=== PATIENT | male | born 2000 | race Caucasian/White ===

== ENCOUNTER 2025-06-12 21:42 | Emergency (ER) | payer BC, SELFPAY ==
[2025-06-12 21:46] VITALS: BP 87/48; PULSE 78; TEMP 36.7; O2SAT 97; BMI 48.7
--- NOTE | 2025-06-12 22:02 | ED_ITS ---
HPI HPI - Back Pain/Injury General Chief Complaint: Back Pain/Injury Stated Complaint: BACK SPASMS Time Seen by Provider: 06/12/25 21:51 Source: patient Mode of arrival: walk-in History of Present Illness HPI Narrative: working in his yard 4 days ago. Next day seen at urgent care for back pain. Treated with prednisone and flexeril. [place] better yesterday and went to work last PM. Now has pain again right lower back into his leg. no pain at the buttocks. No bowel or bladder problems. Pain increased lying supine. No weakness of his extremities Related Data Allergies Allergy/AdvReac Type Severity Reaction Status Date / Time No Known Drug Allergies Allergy Verified 06/12/25 21:54 Opioid HPI Opioid Management Most Recent Opioid Data: 2 Last Pain Scale 1 Today, 00:04 Last ED Pain Assessment Today, 00:04 Review of Systems 2 ROS0 Status of ROS 10 or more systems reviewed and unremark able except as noted in history and below PFSH PFSH Social History Little interest or pleasure in doing things: not at all Feeling down, depressed, or hopeless: not at all Exam Constitutional Vital Signs, click to edit/add: Last Vital Signs Temp 98.1 F 06/12/25 21:46 Pulse 78 06/12/25 21:46 Resp 20 06/12/25 21:46 BP 131/88 06/12/25 22:45 Pulse Ox 97 06/12/25 21:46 O2 Del Method Room Air 06/12/25 21:46 Common normals: oriented x3, healthy appearing and well nourished General appearance: in distress HENNV Common normals: normocephalic and head/scalp atraumatic Eye Common normals: EOMs intact bilaterally and conjunctivae normal Respiratory Common normals: normal respiratory effort, no retractions, no use of accessory muscles and clear to auscultation bilaterally Cardio Common normals: regular rate, regular rhythm, S1 normal heart sound and S2 normal heart sound GI Common normals: Normal to inspection, nondistended, normoactive bowel sounds present, soft to palpation and non-tender Back & Pelvis Back image (male): 2 1. tender. reproduces symptoms Extremity Common normals: normal to inspection and full ROM Neuro Common normals: oriented x3, CN's II-XII intact bilaterally, moves all extremities and no focal motor deficits Psych Appearance: grossly normal Course Vital Signs Vital signs: Vital Signs Temperature 98.1 F 06/12/25 21:46 Pulse Rate 78 06/12/25 21:46 Respiratory Rate 20 06/12/25 21:46 Blood Pressure 87/48 L 06/12/25 21:46 Pulse Oximetry 97 06/12/25 21:46 Oxygen Delivery Method Room Air 06/12/25 21:46 Temperature 98.1 F 06/12/25 21:46 Pulse Rate 78 06/12/25 21:46 Respiratory Rate 20 06/12/25 21:46 Blood Pressure 131/88 06/12/25 22:45 Pulse Oximetry 97 06/12/25 21:46 Oxygen Delivery Method Room Air 06/12/25 21:46 MDM - Back Pain/Injury MDM Narrative Medical decision making narrative: presents with recurrence of acute muscular spasm pain right para lumbar region. No neuro deficits. CBC with mildly elevated WBC. CMP WNL. patient medicated for muscle spasm and is now resting comfortably. Discharged with a prescription of baclofen and prednisone and advised to take next couple of days off of work and follow up with his doctor for recheck Lab Data Labs: Lab Results 06/12/25 Range/Units 22:50 WBC 12.8 H (4.0-11.0) 10^3/uL RBC 5.34 (4.70-6.10) 10^6/uL Hgb 16.1 (14.0-18.0) g/dL Hct 47.6 (42.0-54.0) % MCV 89.1 (80.0-94.0) fL MCH 30.1 (25.9-34.0) pg MCHC 33.8 (29.9-35.2) g/dL RDW 13.2 (11.0-15.0) % Plt Count 290 (150-450) 10^3/uL MPV 11.4 (9.5-13.5) fL Neut % (Auto) 78.6 H (43.0-75.0) % Lymph % (Auto) 12.1 L (20.5-60.0) % [place] % (Auto) 7.4 (1.7-12.0) % Eos % (Auto) 1.2 (0.9-7.0) % Baso % (Auto) 0.3 (0.2-2.0) % Neut # (Auto) 10.0 H (1.4-6.5) 10^3/uL Lymph # (Auto) 1.5 (1.2-3.8) 10^3/uL [place] # (Auto) 1.0 H (0.3-0.8) 10^3/uL Eos # (Auto) 0.2 (0.0-0.7) 10^3/uL Baso # (Auto) 0.0 (0.0-0.1) 10^3/uL Abs Immat Gran (auto) 0.05 H (0.00-0.03) 10^3/uL Imm/Tot Granulo (auto) 0.4 (0.0-0.5) % Sodium 141 (136-145) mmol/L Potassium 4.5 (3.5-5.1) mmol/L Chloride 105 (98-107) mmol/L Carbon Dioxide 28.6 (21.0-32.0) mmol/L Anion Gap 11.9 BUN 16.0 (7.0-18.0) mg/dL Creatinine 1.05 (0.70-1.30) mg/dL Est GFR ( Amer) >60 (>=60 mL/min/1.73m^2) Est GFR (Non-Af Amer) >60 (>=60 mL/min/1.73m^2) BUN/Creatinine Ratio 15.2 Glucose 114 H (74-106) mg/dL Calcium 9.3 (8.5-10.1) mg/dL Total Bilirubin 0.2 (0.2-1.0) mg/dL AST 13 L (15-37) U/L ALT 34 (16-63) U/L Alkaline Phosphatase 68 (46-116) U/L Total Protein 8.2 (6.4-8.2) g/dL Albumin 4.0 (3.4-5.0) g/dL Globulin 4.2 g/dL Albumin/Globulin Ratio 1.0 Discharge Plan Discharge Chief Complaint: Back Pain/Injury Clinical Impression: Strain of lumbar region Patient Disposition: Home, Self-Care Print Language: Divehi Instructions: Muscle Strain (ED), Low Back Strain (ED) Additional Instructions: follow up with Dr Franco next couple of days Referrals: Physician,Non-Staff, MD [Primary Care Provider] - 1 week
[2025-06-12 22:45] VITALS: BP 131/88
[2025-06-12 23:02] LABS: Hematocrit 47.6 % (42.0-54.0); Hemoglobin 16.1 g/dL (14.0-18.0); Immature Granulocytes Abs Auto 0.05 10^3/uL (0.00-0.03); Immature Granulocytes Pct Auto 0.4 % (0.0-0.5); Lymphocytes Absolute Auto 1.5 10^3/uL (1.2-3.8); Mean Corpuscular HGB Conc 33.8 g/dL (29.9-35.2); Mean Corpuscular Hemoglobin 30.1 pg (25.9-34.0); Mean Corpuscular Volume 89.1 fL (80.0-94.0); Platelet Count 290 10^3/uL (150-450); Red Blood Count 5.34 10^6/uL (4.70-6.10); White Blood Count 12.8 10^3/uL (4.0-11.0)
[2025-06-12] MEDS: 0.9 % SODIUM CHLORIDE 1,000 ML 999 ML IV (23:08)
[2025-06-12] MEDS: DIAZEPAM 10 MG/2 ML SYRINGE 5 MG IV (23:09)
[2025-06-12] MEDS: METHYLPREDNISOLONE SOD SUCC PF 125 MG/2 ML VIAL IVP (23:10)
[2025-06-12] MEDS: MAGNESIUM SULFATE IN WATER 2 GM/50 ML PREMIX IV (23:10)
[2025-06-12 23:18] LABS: Alanine Aminotransferase 34 U/L (16-63); Albumin Globulin Ratio 1.0; Albumin Level 4.0 g/dL (3.4-5.0); Alkaline Phosphatase 68 U/L (46-116); Anion Gap 11.9; Aspartate Amino Transferase 13 U/L (15-37); Blood Urea Nitrogen 16.0 mg/dL (7.0-18.0); Calcium 9.3 mg/dL (8.5-10.1); Carbon Dioxide 28.6 mmol/L (21.0-32.0); Chloride 105 mmol/L (98-107); Estimated GFR (African America >60 (>=60 mL/min/1.73m^2); Estimated GFR (Non-African Ame >60 (>=60 mL/min/1.73m^2); Globulin 4.2 g/dL; Glucose 114 mg/dL (74-106); Potassium 4.5 mmol/L (3.5-5.1); Sodium 141 mmol/L (136-145); Total Protein 8.2 g/dL (6.4-8.2)
[2025-06-13 01:14] VITALS: BP 137/81; PULSE 74; O2SAT 98
[2025-06-13] MEDS: BACLOFEN 10 MG TABLET 20 MG PO (01:31)
--- NOTE | 2025-06-13 01:34 | PC.NURSE ---
i gave this patient' mother verbal and written discharge orders along with 2 Rx for this patient. this patient's mother voices yes to understanding these discharge orders and Rx for this patient. at time of discharge this patient nor his mother voices no concerns, needs and shows no signs of distress
== END 2025-06-13 01:33 | disposition home or self-care (01) ==
PROVIDERS: Emergency Provider Internal Medicine
DX: S39.012A Strain of muscle, fascia and tendon of lower back, initial encounter (principal); X58.XXXA Exposure to other specified factors, initial encounter
CPT/HCPCS: 36415; 80053; 85025; 99284; J2919; J3360; J3475

== ENCOUNTER 2025-06-14 09:23 | Outpatient (OUT) | payer BC, SELFPAY ==
--- NOTE | 2025-06-14 09:28 | XR_ITS ---
[place] [address] Patient Name: RESHMA ALMONTE MRN: [id number] date: 2000 Sex: M Assigned Patient Location: [facility] Current Patient Location: [facility] Accession/Order Number: [id number] Exam Date: 06/14/2025 09:30 Report Date: 06/14/2025 10:23 At the request of: JUAN ALBERTO CHAVIS Procedure: XR lumbar spine min 4V LUMBAR SPINE - 5 views CLINICAL HISTORY: Right Sided Low Back Pain With Right Sciatica COMPARISON: None FINDINGS: Vertebral body heights appear maintained. Mild disc space narrowing L5-S1. Minimal endplate degenerative changes. SI joints appear unremarkable XR/XR lumbar spine min 4V IMPRESSION: MILD DISC SPACE NARROWING L5-S1. Impression dictated by: Elmer Menjivar Jr., DRadhaORadha 06/14/2025 10:23 AM Dictation Location: [place] [id number] Electronically authenticated by: [id number] Y Date: 06/14/2025 10:23
== END 2025-06-14 09:24 | disposition home or self-care (01) ==
LOC: RAD 09:24
PROVIDERS: PCP Nurse Practitioner Family; Visit Provider Nurse Practitioner Family
DX: M54.41 Lumbago with sciatica, right side (principal)
CPT/HCPCS: 72110

== ENCOUNTER 2025-06-19 07:35 | Outpatient (RCR) | payer BC, SELFPAY | END 2025-06-29 08:20 | disposition home or self-care (01) | LOC: PT 07:35 | PROVIDERS: PCP Nurse Practitioner Family; Visit Provider Nurse Practitioner Family | DX: M54.41 Lumbago with sciatica, right side (principal); M25.551 Pain in right hip | CPT/HCPCS: 97014; 97110; 97140; 97161 ==